=== PATIENT | female | born 1960 | race Hispanic/Latino ===

== ENCOUNTER 2019-04-03 17:09 | Emergency (ER) | payer OTHER ==
[2019-04-03] MEDS ORDERED: HYDROXYZINE HCL 25 MG TABLET ONE (18:04)
== END 2019-04-03 19:29 | disposition home or self-care (01) ==
LOC: EDH 17:09
DX: F41.1 Generalized anxiety disorder (principal); R51 Headache; F32.9 Major depressive disorder, single episode, unspecified